=== PATIENT | male | born 1990 | race American Indian/Alaskan Native ===

== ENCOUNTER 2016-04-03 10:11 | Emergency (ER) | payer OTHER ==
[2016-04-03] MEDS ORDERED: NACL 0.9% IR ONE (15:35)
[2016-04-03 16:06] VITALS: BP 129/85
--- NOTE | 2016-04-03 16:07 | Emergency Department Report ---
HPI - General Chief Complaint: Dental/Oral Time Seen by Provider: 04/03/16 14:46 - HPI HPI: 26-year-old male presents today with pain of left lower molar 4 days. Describes his pain as a 6 out of 10 constant ache. Patient states he is following up with the dentist at [facility] and they asked him to come to the ER to rule out infection. Positive for nausea and vomiting and states he 's been keeping fluids down. Tried ibuprofen with pain relief. Denies fever, chills, chest pain, shortness of breath, abdominal pain. ED Past Medical Hx - Past Medical History Previous Medical History?: No - Surgical History Past Surgical History?: No - Social History Smoking Status: Never Smoker Substance Use Type: None - Medications Home Medications: Home Medications Medication Instructions Recorded Confirmed Last Taken Type Acetaminophen/Codeine [Tylenol #3] 1 tab PO Q6H PRN #14 tab 04/03/16 Unknown Rx Ondansetron [Zofran Odt] 4 mg PO TID #20 tab.rapdis 04/03/16 Unknown Rx Penicillin Vk [Veetids TAB] 500 mg PO QID #56 tablet 04/03/16 Unknown Rx ED Review of Systems ROS: Stated complaint: BAD TOOTH/POSS INFECTION Other details as noted in HPI Constitutional: denies: chills, fever, malaise Eyes: denies: eye pain ENT: dental pain. denies: ear pain, throat pain, congestion Respiratory: denies: cough, shortness of breath, wheezing Cardiovascular: denies: chest pain, palpitations Endocrine: no symptoms reported Gastrointestinal: nausea, vomiting. denies: abdominal pain Skin: denies: rash Neurological: denies: headache, weakness Physical Exam - Physical Exam Vital Signs: Vital Signs 04/03/16 10:14 Temperature 98.9 F Pulse Rate 116 H Respiratory 17 Rate Blood Pressure 135/94 O2 Sat by Pulse 97 Oximetry Physical Exam: GENERAL: The patient is well-developed and well-nourished. Patient is in NAD. HEAD: Normocephalic. Atraumatic. EYES: PERRL. EARS: External auditory canals and tympanic membranes clear; hearing grossly intact. NOSE: Normal nasal mucosa with no nasal discharge. THROAT: No erythema, swelling or exudates. DENTAL: Positive for left sided facial swelling. Dental abscess noted near tooth #18 with tenderness to palpation. No bleeding or drainage noted. NECK: Supple, nontender, without lymphadenopathy. CHEST/LUNGS: Clear to auscultation throughout. HEART/CARDIOVASCULAR: Regular rate and rhythm. ABDOMEN: Abdomen is soft, nontender. No guarding or rebound tenderness. EXTREMITIES:Peripheral pulses intact. Capillary refill less than 2 seconds. ED Course Vital Signs 04/03/16 10:14 Temperature 98.9 F Pulse Rate 116 H Respiratory 17 Rate Blood Pressure 135/94 O2 Sat by Pulse 97 Oximetry - Procedure Description Procedures done: An 18 gauge needle was used to create an incision. Return was 0.5 ml of purulent fluid. The patient tolerated the procedure well. Wound care instructions were given. ED Medical Decision Making - Lab Data Vital Signs 04/03/16 04/03/16 10:14 16:05 Temperature 98.9 F Pulse Rate 116 H 101 H Respiratory 17 16 Rate Blood Pressure 135/94 Blood Pressure 129/85 [Right] O2 Sat by Pulse 97 95 Oximetry - Medical Decision Making 26-year-old male presents today with dental abscess of his left lower molar. Back displays drained, patient tolerated procedure well. Wound care instructions provided. Patient is in no acute distress at this time. He will be discharged home and is encouraged to follow up with a dentist. He will be sent home on penicillin VK, Zofran and Tylenol 3 and is encouraged to return to the emergency room for any worsening symptoms. Critical care attestation.: If time is entered above; I have spent that time in minutes in the direct care of this critically ill patient, excluding procedure time. ED Disposition Clinical Impression: Dental abscess Disposition: DISCHARGED TO HOME OR SELFCARE Is pt being admited?: No Does the pt Need Aspirin: No Condition: Stable Instructions: Dental Abscess (ED) Additional Instructions: Follow-up with a dentist. Return to the emergency department if symptoms worsen. Prescriptions: Acetaminophen/Codeine [Tylenol #3] 1 tab PO Q6H PRN #14 tab PRN Reason: Pain Penicillin Vk [Veetids TAB] 500 mg PO QID #56 tablet Ondansetron [Zofran Odt] 4 mg PO TID #20 tab.[email or web address] [email or web address] Referrals: PRIMARY CARE, [Primary Care Provider] - 3-5 Days [facility] [Outside] - 3-5 Days [facility] [Outside] - 3-5 Days Forms: Work/School Release Form(ED) Time of Disposition: 16:03
== END 2016-04-03 16:15 | disposition home or self-care (01) ==
LOC: ED 10:11
DX: K04.7 Periapical abscess without sinus (principal)

== ENCOUNTER 2016-07-23 13:41 | Emergency (ER) | payer SELFPAY ==
[2016-07-23 14:06] VITALS: BP 129/80
== END 2016-07-23 15:26 | disposition home or self-care (01) ==
LOC: ED 13:41
DX: L70.0 Acne vulgaris (principal); J45.909 Unspecified asthma, uncomplicated
CPT/HCPCS: 99282

== ENCOUNTER 2017-04-10 19:06 | Emergency (ER) | payer SELFPAY ==
[2017-04-10] MEDS ORDERED: TYLENOL ONE (20:51)
[2017-04-10] MEDS ORDERED: TYLENOL PO ONE (20:54)
[2017-04-10] MEDS ORDERED: MOTRIN PO ONE (22:32)
--- NOTE | 2017-04-10 22:38 | Emergency Department Report ---
HPI - General Chief Complaint: Upper Respiratory Infection Time Seen by Provider: 04/10/17 22:31 - HPI HPI: 27-year-old male presents today complaining of cough, fever, body aches, chills , congestion, headache 1 day. Denies nausea, vomiting, diarrhea, chest pain, shortness of breath, abdominal pain. Patient reports that his cough is dry. He has not taken any medication for symptomatic relief. He states that he one of his friends had similar symptoms but was not examined or treated. ED Past Medical Hx - Past Medical History Hx Asthma: Yes - Social History Smoking Status: Never Smoker Substance Use Type: None - Medications Home Medications: Home Medications Medication Instructions Recorded Confirmed Last Taken Type Acetaminophen/Codeine [Tylenol #3] 1 tab PO Q6H PRN #14 tab 04/03/16 Unknown Rx Ondansetron [Zofran Odt] 4 mg PO TID #20 tab.rapdis 04/03/16 Unknown Rx Penicillin Vk [Veetids TAB] 500 mg PO QID #56 tablet 04/03/16 Unknown Rx Tretinoin [Retin-A] 20 applic TP DAILY #1 cream..g. 07/23/16 Unknown Rx Fluticasone [Flonase] 1 spray NS QDAY #1 bottle 04/10/17 Unknown Rx Oseltamivir [Tamiflu] 75 mg PO BID #10 cap 04/10/17 Unknown Rx Promethazine /Codeine 5 ml PO Q6H PRN #150 ml 04/10/17 Unknown Rx [Phenergan/Codeine 6.25-10 mg/5 ml] ED Review of Systems ROS: Stated complaint: FEVER/COUGH/CHILLS Other details as noted in HPI Constitutional: chills, fever, malaise Eyes: denies: eye pain ENT: congestion. denies: ear pain, throat pain Respiratory: cough. denies: shortness of breath, wheezing Cardiovascular: denies: chest pain, palpitations Endocrine: no symptoms reported Gastrointestinal: denies: abdominal pain, nausea, vomiting, diarrhea Skin: denies: rash, lesions Neurological: headache. denies: weakness Physical Exam - Physical Exam Vital Signs: Vital Signs 04/10/17 04/10/17 20:52 20:55 Temperature 102.8 F H Pulse Rate 124 H Respiratory 20 18 Rate Blood Pressure 140/76 O2 Sat by Pulse 100 Oximetry Physical Exam: GENERAL: The patient is well-developed and well-nourished. Appears ill. HEAD: Normocephalic. Atraumatic. No sinus tenderness to palpation. EYES: Extraocular motions are intact, PERRL. EARS: External auditory canals and tympanic membranes clear; hearing grossly intact. NOSE: Nasal passages appear congested. THROAT: No erythema, swelling or exudates. Clear postnasal drip noted. NECK: Supple, nontender, without lymphadenopathy. No meningitic signs are noted. CHEST/LUNGS: Clear to auscultation throughout. Cough appreciated. HEART/CARDIOVASCULAR: Regular rate and rhythm. No murmurs, rubs or gallops. ABDOMEN: Abdomen is soft, nontender. Bowel sounds normoactive. No guarding or rebound tenderness. EXTREMITIES: Peripheral pulses intact. Capillary refill less than 2 seconds. NEURO: Alert and oriented x 3. Normal gait. ED Course Vital Signs 04/10/17 04/10/17 20:52 20:55 Temperature 102.8 F H Pulse Rate 124 H Respiratory 20 18 Rate Blood Pressure 140/76 O2 Sat by Pulse 100 Oximetry ED Medical Decision Making - Lab Data Vital Signs 04/10/17 04/10/17 04/10/17 20:52 20:55 22:41 Temperature 102.8 F H Pulse Rate 124 H 108 H Respiratory 20 18 Rate Blood Pressure 140/76 123/65 O2 Sat by Pulse 100 97 Oximetry 04/10/17 22:46 Temperature 100.3 F H Pulse Rate Respiratory Rate Blood Pressure O2 Sat by Pulse Oximetry - Medical Decision Making 27-year-old male presents today with cough, fever, body aches, chills, congestion, headaches times one day. Patient has been given a clinical diagnosis of influenza. Patient is in no acute distress at this time. She will be discharged home and is encouraged to follow up with a primary care provider. Patient is advised to alternate Tylenol and Motrin for fever and pain. She will be sent home on Tamiflu, promethazine/codeine, Flonase and is encouraged to return to the emergency room for any worsening symptoms. Critical care attestation.: If time is entered above; I have spent that time in minutes in the direct care of this critically ill patient, excluding procedure time. ED Disposition Clinical Impression: Influenza Disposition: -01 TO HOME OR SELFCARE Is pt being admited?: No Does the pt Need Aspirin: No Condition: Stable Instructions: Influenza (ED) Additional Instructions: Alternate Tylenol and Motrin for fever and pain. Follow-up with primary care provider. Return to the emergency department if symptoms worsen. Prescriptions: Fluticasone [Flonase] 1 spray NS QDAY #1 bottle Oseltamivir [Tamiflu] 75 mg PO BID #10 cap Promethazine /Codeine [Phenergan/Codeine 6.25-10 mg/5 ml] 5 ml PO Q6H PRN #150 ml PRN Reason: cough Referrals: [facility] [Outside] - 3-5 Days Forms: Work/School Release Form(ED) Time of Disposition: 22:38
[2017-04-10 22:46] VITALS: BP 123/65
== END 2017-04-10 23:02 | disposition home or self-care (01) ==
LOC: ED 19:06
DX: J11.1 Influenza due to unidentified influenza virus with other respiratory manifestations (principal)
CPT/HCPCS: 99282